=== PATIENT | female | born 1985 | race Caucasian/White ===

== ENCOUNTER 2019-06-06 03:53 | Emergency (ER) | payer SELFPAY ==
[2019-06-06] MEDS ORDERED: DEXAMETHASONE SOD PHOS 20 MG/5 ML VIAL. IV ONE (05:00)
[2019-06-06] MEDS ORDERED: DEXAMETHASONE 4 MG TABLET PO ONE (05:00)
[2019-06-06] MEDS ORDERED: DEXAMETHASONE SOD PHOS 20 MG/5 ML VIAL. PO ONE (05:00)
== END 2019-06-06 04:58 | disposition home or self-care (01) ==
LOC: ER 03:53
DX: J32.9 Chronic sinusitis, unspecified (principal); J06.9 Acute upper respiratory infection, unspecified; J45.909 Unspecified asthma, uncomplicated
CPT/HCPCS: 99283; J8540; J1100